=== PATIENT | female | born 1975 | race Caucasian/White ===

== ENCOUNTER 2017-03-13 12:22 | Emergency (ER) | payer BC ==
[2017-03-13 12:29] VITALS: BP 128/80
--- NOTE | 2017-03-13 13:48 | RAD ---
Indication: LEFT ankle and foot pain after standing. Comparison: No relevant prior exams available on the [facility] for comparison. Technique: AP, mortise, and lateral views LEFT ankle. REPORT AND IMPRESSION: Normal alignment and preserved joint spaces. Negative for fracture or focal osseous lesion. Small Achilles tendon insertion bone spur. Unremarkable soft tissue contours.
--- NOTE | 2017-03-13 13:50 | RAD ---
Indication: LEFT ankle and foot pain after standing. Comparison: Ankle of the same day. Technique: AP, lateral, and oblique views LEFT foot. Report: Negative for fracture or stigmata of stress reaction. Normal articular alignment. Small os peroneum accessory ossicle. Variant cornuate morphology of the navicula. Unremarkable soft tissue contours. IMPRESSION: Negative exam.
[2017-03-13] MEDS ORDERED: Ibuprofen TAB* 600 MG PO ONE (14:01)
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
== END 2017-03-13 14:24 | disposition home or self-care (01) ==
LOC: ED 12:22
DX: S93.402A Sprain of unspecified ligament of left ankle, initial encounter (principal); W19.XXXA Unspecified fall, initial encounter; Y93.9 Activity, unspecified; Y92.9 Unspecified place or not applicable
CPT/HCPCS: 99282; A9270-GY